=== PATIENT | male | born 1960 | race Caucasian/White ===

== ENCOUNTER 2016-10-23 11:22 | Observation (INO) | payer BC ==
[2016-10-23] MEDS ORDERED: Morphine INJ* 4 MG/ML 1 ML CARPUJECT IV ONE (11:55)
[2016-10-23] MEDS ORDERED: NS 0.9% 1000 ML* 2,000 ML IV ONE (11:55)
[2016-10-23] MEDS ORDERED: Ondansetron INJ* 2 MG/ML VIAL IV ONE (11:55)
[2016-10-23] MEDS ORDERED: Pantoprazole IV* 40 MG IV ONE (11:55)
[2016-10-23 12:37] LABS: Hematocrit 44 % (42-52); Hemoglobin 14.7 g/dl (14.0-18.0); Mean Corpuscular HGB Conc 33 g/dl (31-36); Mean Corpuscular Hemoglobin 29 pg (27-31); Mean Corpuscular Volume 88 fL (80-94); Mean Platelet Volume 9 um3 (7.4-10.4); Red Blood Count 5.07 10^6/ul (4.0-5.4); Red Cell Distribution Width 15 % (10.5-15); White Blood Count 10.5 10^3/ul (3.5-10.8)
[2016-10-23 12:53] LABS: Albumin 3.9 g/dL (3.2-5.2); BUN/Creatinine Ratio 12.8 (8-20); C Reactive Protein 8.65 mg/L (< 5.00); Calcium 9.2 mg/dL (8.6-10.3); EGFR African American 106.4 (>60); EGFR Non-African American 82.7 (>60); Globulin 3.6 g/dL (2-4); Magnesium 1.7 mg/dL (1.9-2.7); Potassium 3.8 mmol/L (3.5-5.0); Total Bilirubin 0.5 mg/dL (0.2-1.0); Total Protein 7.5 g/dL (6.4-8.9)
--- NOTE | 2016-10-23 13:12 | RAD ---
INDICATION: Upper abdominal pain. COMPARISON: Comparison is made with a prior chest x-ray study from December 05, 2014. TECHNIQUE: A portable view of the chest was obtained. FINDINGS: The patient is status post anatomy. The heart is within normal limits in size. The lungs are underinflated and grossly clear. No pleural or effusion or pneumothorax is seen. No free intraperitoneal air is seen. IMPRESSION: NO EVIDENCE FOR ACUTE FINDING.
[2016-10-23 13:31] LABS: TSH (Thyroid Stimulating Horm) 3.96 mcIU/mL (0.34-5.60)
--- NOTE | 2016-10-23 13:38 | RAD ---
HISTORY: Abdominal pain COMPARISONS: CT dated March 18, 2015 TECHNIQUE: Multiple transverse and longitudinal ultrasound images were obtained of the right upper quadrant of the abdomen using grayscale and color Doppler imaging. FINDINGS: The study is limited by patient bowel gas. LIVER: The liver is diffusely echogenic and coarse in echotexture, with decreased acoustic transmission. The liver measures 21 cm in long axis.. There is normal hepatopedal flow of the portal vein on Doppler imaging. BILIARY TREE: There is no intrahepatic or extrahepatic biliary dilatation. The common duct measures 0.4 cm. GALLBLADDER: The gallbladder is distended. Multiple shadowing echogenic foci consistent with gallstones are noted. There is no gallbladder wall thickening, pericholecystic fluid, or sonographic Valerio sign. PANCREAS: The pancreas is obscured by overlying bowel gas. RIGHT KIDNEY: The right kidney is normal in shape, size, contour, and echogenicity. There is no hydronephrosis or nephrolithiasis. The right kidney measures 11 x 4.7 x 3.7 cm. AORTA AND IVC: The aorta and IVC are unremarkable. FLUID: There are no pleural effusions. There is no free fluid within the hepatorenal recess. OTHER FINDINGS: None. IMPRESSION: HEPATOMEGALY WITH FATTY INFILTRATION OF THE LIVER. CHOLELITHIASIS
[2016-10-23] MEDS ORDERED: Iohexol 300* (CONTRAST) 10 ML SDV IV ONE (13:51)
--- NOTE | 2016-10-23 15:12 | RAD ---
INDICATION: Diffuse abdominal pain. History of Crohn's disease. Post appendectomy, colon resection. COMPARISON: RIGHT upper quadrant ultrasound of the same date and March 18, 2015 CT. TECHNIQUE: Multidetector CT images were obtained from the lung bases to the ischial tuberosities with 132 mL Omnipaque 300 IV and oral contrast. Multiplanar reformation. REPORT: Minimal dependent subsegmental atelectasis. Prosthetic aortic valve noted. Negative for cardiomegaly or pericardial effusion. Decreased density of the liver consistent with fatty infiltration. No focal hepatic lesions or biliary dilatation. Adequately distended gallbladder is remarkable for small dependent stones without additional sonographic abnormality. Unremarkable pancreas and spleen. Splenule at the splenic hilum. There is mucosal enhancement of the residual featureless: Post total colectomy with ileoanal anastomosis. There are segmental regions of mural thickening of the ileum most prominent at the supraumbilical anterior abdomen where it is severe with mild associated perienteric inflammatory change. Resulting low-grade partial small bowel obstruction or ileus with mild dilatation of proceeding loops of ileum measuring up to 2.8 cm diameter with air-fluid levels. Negative for pneumatosis. Negative for ascites, free air, hernias. Normal adrenal glands. 2 mm nonobstructing calyceal stone upper pole LEFT kidney. A few small renal cortical lesions are noted at the RIGHT kidney most consistent with benign cysts although too small to fully characterize. Unremarkable ureters and partially distended urinary bladder as well as the prostate and seminal vesicles. Negative for lymphadenopathy. Small talon hepatis lymph nodes measure up to 1 cm short axis, the upper limits of normal without change. Anterior abdominal mesenteric lymph nodes measuring up to 1.0 cm short axis diameter, the upper limits of normal without change. Normal diameter abdominal aorta and iliac arteries. Physiologic distention of the IVC. Unremarkable sacroiliac joints. No suspicious focal osseous lesions evident. IMPRESSION: 1. The constellation of findings is consistent with a Crohn's exacerbation involving the ileum as described. Resulting low-grade partial small bowel obstruction or ileus. 2. Talon hepatis and mesenteric lymph nodes measuring up to 1 cm short axis diameter at the upper limits of normal without change. 3. Hepatic steatosis. 4. Cholelithiasis. 5. Nonobstructing stone upper pole calyx LEFT kidney without change.
[2016-10-23] MEDS ORDERED: Morphine INJ* 4 MG/ML 1 ML CARPUJECT IV PRN (17:37)
[2016-10-23] MEDS ORDERED: Acetaminophen TAB* 325 MG PO PRN (17:37)
[2016-10-23] MEDS ORDERED: Ondansetron INJ* 2 MG/ML VIAL IV PRN (17:38)
[2016-10-23] MEDS ORDERED: Warfarin TAB(*) 7.5 MG PO SCH (18:00)
[2016-10-23] MEDS ORDERED: fentaNYL PATCH 25 MCG/HR TRANSDERM SCH ×2 (18:00→20:00)
[2016-10-23] MEDS ORDERED: Morphine INJ* 4 MG/ML 1 ML CARPUJECT ONE (18:26)
[2016-10-23] MEDS ORDERED: fentaNYL PATCH 12 MCG/HR TRANSDERM SCH ×2 (19:00→20:00)
[2016-10-23] MEDS: fentaNYL Patch Check Q Shift 1 NOTE SCH (21:01)
[2016-10-23] MEDS: sulfaSALAzine TAB* 500 MG PO SCH (21:23)
[2016-10-23] MEDS: Metoprolol Tartrate TAB* 25 MG PO SCH (21:24)
[2016-10-23] MEDS: Pantoprazole IV* 40 MG IV SCH (21:24)
--- NOTE | 2016-10-23 21:25 | ED ---
Von Mtz Kyle, scribed for Russell Polo MD on 10/23/16 at 1156 . Abdominal Pain/Male - HPI Summary HPI Summary: This is a 56 yo male presenting with complaints of intermittent upper abdominal pain that began around 1045 this morning. He reports that the pain comes in waves and lasts for about 30 seconds at a time. He does have a history of Crohn' s which he reports this is not similar to. He also notes that he took Clindamycin this morning before going to the dentist, which reports is the only thing has has done differently. He denies any chest pain, fevers, chills, vomiting, diarrhea. No bloody BM. He is currently on Coumadin. - History of Current Complaint Chief Complaint: EDChestPainROMI Stated Complaint: CHEST PAIN Time Seen by Provider: 10/23/16 11:49 Hx Obtained From: Patient Onset/Duration: Sudden Onset Timing: Intermittent Severity Initially: Moderate Severity Currently: Moderate Pain Intensity: 8 Pain Scale Used: 0-10 Numeric Location: Epigastric Radiates: No Character: Sharp Aggravating Factor(s): Nothing Alleviating Factor(s): Nothing - Allergies/Home Medications Allergies/Adverse Reactions: Allergies Allergy/AdvReac Type Severity Reaction Status Date / Time Infliximab [From Remicade] Allergy Severe Flushing, Verified 10/23/16 11:32 pain, hypertension Iron Dextran [From Infed] Allergy Severe RED FACE, Verified 10/23/16 11:32 BACK PAIN Mercaptopurine Allergy Severe HIGH TEMPS Verified 10/23/16 11:32 Methotrexate Allergy Severe Shakes Verified 10/23/16 11:32 Penicillins [PCN] Allergy Intermediate Rash Verified 10/23/16 11:32 NSAIDs Allergy Unknown Must not Verified 10/23/16 11:32 have them secondary to Crohn's Home Medications: Home Medications Adalimumab (NF) [Humira Pen (NF)] 40 mg SUBCUT Q14D 10/23/16 [History Confirmed 10/23/16] Magnesium Oxide TAB* [MagOx 400 TAB*] 400 mg PO DAILY 10/23/16 [History Confirmed 10/23/16] Warfarin Sodium 7.5 mg PO EVERY OTHER DAY 10/23/16 [History Confirmed 10/23/16] PMH/Surg Hx/FS Hx/Imm Hx Endocrine/Hematology History: Reports: Hx Anticoagulant Therapy, Hx Blood Transfusions, Hx Anemia Denies: Hx Diabetes, Hx Thyroid Disease Cardiovascular History: Reports: Hx Deep Vein Thrombosis - x2, Hx Hypertension, Hx Valvular Heart Disease - AORTIC STENOSIS, Other Cardiovascular Problems/ Disorders - VALVE STENOSIS, STARTED ON COUMADIN Denies: Hx Congestive Heart Failure Respiratory History: Denies: Hx Asthma, Hx Chronic Obstructive Pulmonary Disease (COPD), Other Respiratory Problems/Disorders GI History: Reports: Hx Crohn's Disease, Hx Gastroesophageal Reflux Disease, Hx Obstructive Bowel - bowel resection hx, Other GI Disorders - Ilicolonic resection 1990 Denies: Hx Ulcer History: Reports: Hx Kidney Stones Denies: Other Problems/Disorders Musculoskeletal History: Reports: Other Musculoskeletal History - joint pain/ problems Sensory History: Reports: Hx Contacts or Glasses Denies: Hx Hearing Aid Opthamlomology History: Reports: Hx Contacts or Glasses Neurological History: Denies: Other Neuro Impairments/Disorders - Surgical History Surgery Procedure, Year, and Place: appendectomy, colon resection. Aortic Valve replaced 09/2014 Hx Anesthesia Reactions: No Infectious Disease History: No Infectious Disease History: Reports: Hx Shingles Denies: Hx Hepatitis, Hx Human Immunodeficiency Virus (HIV), History Other Infectious Disease, Traveled Outside the [place] in Last 30 Days - Family History Known Family History: Positive: Other Family History: Father, COPD; Mother, Lymphoma - Social History Alcohol Use: Occasionally Alcohol Amount: 3-4 beers Hx Substance Use: No Substance Use Type: Reports: Marijuana Substance Use Comment - Amount & Last Used: weekly Hx Tobacco Use: No Smoking Status (MU): Never Smoked Tobacco Have You Smoked in the Last Year: No Review of Systems Negative: Fever, Chills Negative: Chest Pain Positive: Abdominal Pain, Nausea. Negative: Vomiting, Diarrhea, Other - blood BM Genitourinary: Negative Musculoskeletal: Negative Skin: Negative Neurological: Negative Psychological: Normal All Other Systems Reviewed And Are Negative: Yes Physical Exam - Summary Physical Exam Summary: General: well-appearing, no pain distress Skin: warm, color reflects adequate perfusion, dry Head: normal Eyes: EOMI, TARA ENT: normal Neck: supple, nontender Respiratory: CTA, breath sounds present Cardiovascular: RRR Abdomen: soft, tender in the epigastric region. Hypoactive bowel sounds. Bowel: present Musculoskeletal: normal, strength/ROM intact Neurological: normal, sensory/motor intact, A&O x3 Psychological: affect/mood appropriate Triage Information Reviewed: Yes Vital Signs On Initial Exam: Initial Vitals Temp Pulse Resp BP Pulse Ox 98.2 F 63 18 141/93 93 10/23/16 11:24 10/23/16 11:24 10/23/16 11:24 10/23/16 11:24 10/23/16 11:24 Vital Signs Reviewed: Yes - Jigar Coma Scale Coma Scale Total: 15 Diagnostics - Vital Signs Vital Signs Temp Pulse Resp BP Pulse Ox 10/23/16 11:40 98.2 F 60 46 159/83 97 10/23/16 11:39 159/83 10/23/16 11:24 98.2 F 63 18 141/93 93 - Laboratory Lab Results: Lab Results 10/23/16 10/23/16 10/23/16 Range/Units 12:14 12:14 12:14 WBC (3.5-10.8) 10^3/ul RBC (4.0-5.4) 10^6/ul Hgb (14.0-18.0) g/dl Hct (42-52) % MCV (80-94) fL MCH (27-31) pg MCHC (31-36) g/dl RDW (10.5-15) % Plt Count (150-450) 10^3/ul MPV (7.4-10.4) um3 Neut % (Auto) (38-83) % Lymph % (Auto) (25-47) % [place] % (Auto) (1-9) % Eos % (Auto) (0-6) % Baso % (Auto) (0-2) % Absolute Neuts (auto) (1.5-7.7) 10^3/ul Absolute Lymphs (auto) (1.0-4.8) 10^3/ul Absolute Monos (auto) (0-0.8) 10^3/ul Absolute Eos (auto) (0-0.6) 10^3/ul Absolute Basos (auto) (0-0.2) 10^3/ul Absolute Nucleated RBC 10^3/ul Nucleated RBC % INR (Anticoag Therapy) 1.67 H (0.89-1.11) APTT 36.8 H (26.0-36.3) seconds Sodium 135 (133-145) mmol/L Potassium 3.8 (3.5-5.0) mmol/L Chloride 106 (101-111) mmol/L Carbon Dioxide 21 L (22-32) mmol/L Anion Gap 8 (2-11) mmol/L BUN 12 (6-24) mg/dL Creatinine 0.94 (0.67-1.17) mg/dL Est GFR ( Amer) 106.4 (>60) Est GFR (Non-Af Amer) 82.7 (>60) BUN/Creatinine Ratio 12.8 (8-20) Glucose 95 (70-100) mg/dL Lactic Acid (0.5-2.0) mmol/L Calcium 9.2 (8.6-10.3) mg/dL Magnesium 1.7 L (1.9-2.7) mg/dL Total Bilirubin 0.50 (0.2-1.0) mg/dL AST 24 (13-39) U/L ALT 18 (7-52) U/L Alkaline Phosphatase 69 (34-104) U/L Total Creatine Kinase 90 (10-223) U/L CK-MB (CK-2) 4.0 (0.6-6.3) ng/mL Troponin I 0.00 (<0.04) ng/mL C-Reactive Protein 8.65 H (< 5.00) mg/L B-Natriuretic Peptide 128 H ( - 100) pg/mL Total Protein 7.5 (6.4-8.9) g/dL Albumin 3.9 (3.2-5.2) g/dL Globulin 3.6 (2-4) g/dL Albumin/Globulin Ratio 1.1 (1-3) TSH 3.96 (0.34-5.60) mcIU/mL 10/23/16 10/23/16 Range/Units 12:14 12:14 WBC 10.5 (3.5-10.8) 10^3/ul RBC 5.07 (4.0-5.4) 10^6/ul Hgb 14.7 (14.0-18.0) g/dl Hct 44 (42-52) % MCV 88 (80-94) fL MCH 29 (27-31) pg MCHC 33 (31-36) g/dl RDW 15 (10.5-15) % Plt Count 216 (150-450) 10^3/ul MPV 9 (7.4-10.4) um3 Neut % (Auto) 75.9 (38-83) % Lymph % (Auto) 14.3 L (25-47) % [place] % (Auto) 8.7 (1-9) % Eos % (Auto) 0.7 (0-6) % Baso % (Auto) 0.4 (0-2) % Absolute Neuts (auto) 8.0 H (1.5-7.7) 10^3/ul Absolute Lymphs (auto) 1.5 (1.0-4.8) 10^3/ul Absolute Monos (auto) 0.9 H (0-0.8) 10^3/ul Absolute Eos (auto) 0.1 (0-0.6) 10^3/ul Absolute Basos (auto) 0 (0-0.2) 10^3/ul Absolute Nucleated RBC 0.01 10^3/ul Nucleated RBC % 0.1 INR (Anticoag Therapy) (0.89-1.11) APTT (26.0-36.3) seconds Sodium (133-145) mmol/L Potassium (3.5-5.0) mmol/L Chloride (101-111) mmol/L Carbon Dioxide (22-32) mmol/L Anion Gap (2-11) mmol/L BUN (6-24) mg/dL Creatinine (0.67-1.17) mg/dL Est GFR ( Amer) (>60) Est GFR (Non-Af Amer) (>60) BUN/Creatinine Ratio (8-20) Glucose (70-100) mg/dL Lactic Acid 1.4 (0.5-2.0) mmol/L Calcium (8.6-10.3) mg/dL Magnesium (1.9-2.7) mg/dL Total Bilirubin (0.2-1.0) mg/dL AST (13-39) U/L ALT (7-52) U/L Alkaline Phosphatase (34-104) U/L Total Creatine Kinase (10-223) U/L CK-MB (CK-2) (0.6-6.3) ng/mL Troponin I (<0.04) ng/mL C-Reactive Protein (< 5.00) mg/L B-Natriuretic Peptide ( - 100) pg/mL Total Protein (6.4-8.9) g/dL Albumin (3.2-5.2) g/dL Globulin (2-4) g/dL Albumin/Globulin Ratio (1-3) TSH (0.34-5.60) mcIU/mL Result Diagrams: 10/23/16 12:14 10/23/16 12:14 Lab Statement: Any lab studies that have been ordered have been reviewed, and results considered in the medical decision making process. - Radiology CXR Xray Interpretation: No Acute Changes - No evidence of acute findings. Radiology Interpretation Completed By: Radiologist - CT ABD/Pelvis CT Interpretation: Positive (See Comments) - Impression: 1. The constellation of findings is consistent with a Crohn's exacerbation involving the ileum as described. Resulting low-grade partial small bowel obstruction or ileus. 2. Talon hepatis and mesenteric lymph nodes measuring up to 1 cm short axis diameter at the upper limits of normal without change. 3. Hepatic steatosis. 4. Cholelithiasis. 5. Non obstructing stone upper role calyx left kidney without change. CT Interpretation Completed By: ED Physician - Ultrasound No standard instances Ultrasound Interpretation: Positive (See Comments) - Gallbladder US: Hepatomegaly with fatty infiltration of the liver. Cholelithiasis. Ultrasound Interpretation Completed By: Radiologist Abdominal Pain Fem Course/Dx - Course Course Of Treatment: DISCUSSED RESULTS WITH PATIENT/. ADMIT HOSPITALIST. NO CRITICAL CARE TIME. - Diagnoses Provider Diagnoses: SBO (small bowel obstruction), Exacerbation of Crohn's disease Discharge - Discharge Plan Condition: Stable Disposition: ADMITTED TO [facility] documentation as recorded by the Von dupree Kyle accurately reflects the service I personally performed and the decisions made by me, Russell Polo MD.
--- NOTE | 2016-10-23 22:41 | HP ---
CC: Dr. Landry* [facility] MEDICINE HISTORY AND PHYSICAL: DATE OF ADMISSION: 10/23/16 PRIMARY CARE PHYSICIAN: Dr. Landry. ATTENDING PHYSICIAN: Ewa York DO * (dictation provided by Monica Santana NP ). CHIEF COMPLAINT: Epigastric pain. HISTORY OF PRESENT ILLNESS: Mr. Tipton is a 56-year-old male with a past medical history of Crohn's disease with a bowel resection in 1990 and plans for repair of a rectal fistula next Thursday with Dr. Salas in [place]. He also has a history of aortic valve replacement with a bovine valve in 2014 in [place]. He reports that there is a "heart valve mismatch" and that valve is considered possibly to be too small. He reports that he had been evaluated in [facility] with plans for placement, but he declined at that point. His symptoms related to that are shortness of breath. He also has myelodysplastic syndrome that is "mild" and he is followed by Dr. Méndez with routine labs. Mr. Tipton had a dental appointment today. He ate a small breakfast and then took clindamycin as directed for endocarditis prophylaxis with his mechanical aortic valve. He got in his car and was driving to the dentist when he developed epigastric discomfort. He stated that the pain was very quite severe. He felt short of breath and anxious. He went home where he met his and because of the severity of the symptoms, they ultimately presented to the emergency room for evaluation. He states he was feeling in his normal state of health yesterday. He has had no recent Crohn's flares. The patient has had normal soft stools recently. His last bowel movement was this morning. In the emergency room, his vital signs were unremarkable. He had labs, which were also unremarkable. His C-reactive protein is 8.65. The patient had a gallbladder ultrasound, which showed hepatomegaly with fatty infiltration of the liver and cholelithiasis only. He had a chest x-ray which showed no acute finding, but he had an abdomen and pelvis CT, which I am concerned for a Crohn' s exacerbation in the ileum with possible partial small-bowel obstruction. PAST MEDICAL HISTORY: 1. Crohn's disease. 2. Aortic valve replacement in 2014 with concern for a valve that is "too small." 3. Myelodysplastic syndrome, followed by Dr. Méndez. 4. Iron deficiency anemia. 5. Multiple episodes of shingles most recently to his left arm. PAST SURGICAL HISTORY: 1. Bowel resection in 1990. 2. History of kidney stones. 3. History of tonsillectomy. 4. History of appendectomy. MEDICATIONS: 1. Warfarin 5 mg alternating with 7.5 mg every other day. 2. Humira Pen 40 mg subcutaneously q.14 days. 3. Cyanocobalamin 1000 mcg subcutaneously Thursday. 4. Ferumoxytol 610 mg IV as directed. 5. Lansoprazole 30 mg p.o. daily. 6. Magnesium 400 mg p.o. daily. 7. Amlodipine 10 mg p.o. daily. 8. Metoprolol tartrate 12.5 mg p.o. b.i.d. 9. Potassium 20 mEq p.o. daily. 10. Fentanyl patch 37.5 mcg q.72 hours. 11. Sulfasalazine 2000 mg p.o. b.i.d. ALLERGIES: To INFLIXIMAB, IRON DEXTRAN, MERCAPTOPURINE, METHOTREXATE, PENICILLINS, and NSAIDS. FAMILY HISTORY: The patient reports his mother related to COPD and dad related to his lymphoma. SOCIAL HISTORY: The patient has never been a smoker. He drinks 4 to 5 alcoholic beverages per month. He denies any drug use. He lives with his , who is his healthcare proxy. REVIEW OF SYSTEMS: A 14-point review of systems was completed with Mr. Tipton and all those not mentioned above were negative. PHYSICAL EXAMINATION GENERAL: Mr. Tipton is sitting up in the bed. He is in no acute distress. VITAL SIGNS: Temperature 98.2, heart rate 59, respiratory rate 17, O2 saturation 93% on room air, blood pressure 139/86. LUNGS: Clear to auscultation bilaterally with no accessory muscle use and good aeration. HEART: S1, S2. No murmur, rub or gallop and regular. ABDOMEN: Soft and nontender with bowel sounds positive x4. EXTREMITIES: No cyanosis or edema. SKIN: Intact. NEUROLOGIC: He is alert. He is oriented x3. He moves all extremities equally. There is no facial asymmetry or focal weakness. Extraocular movements are intact. DIAGNOSTIC STUDIES/LAB DATA: Sodium 135, potassium 3.8, chloride 106, serum bicarbonate 21, BUN 12, creatinine 0.94, glucose 95. BNP 128, CRP 8.65. Troponin 0.00. WBC 10.5, hemoglobin 14.7, hematocrit 44, platelet count 216. INR 1.67. Again, the abdomen and pelvis CT is read as follows: "The constellation of findings is consistent with a Crohn's exacerbation involving the ileum as described resulting in low-grade partial small bowel obstruction or ileus portal , mi hepatis and mesenteric lymph nodes measuring up to 1 cm short axis diameter at the upper limits of normal without change, hepatic steatosis, cholelithiasis, nonobstructing stone, upper pole calyx left kidney without change. Chest x-ray and gallbladder ultrasound are as read above in the HPI. EKG shows sinus rhythm with no evidence of ischemia and a heart rate of 60. ASSESSMENT: Mr. Tipton is a 56-year-old male with past medical history of Crohn's disease and aortic valve replacement as well as myelodysplastic syndrome who presents today to the hospital with concern for epigastric pain and CT scan has been found to show concern for Crohn's exacerbation and a partial small bowel obstruction. Our plans are for observation in the hospital for the followin. Partial small bowel obstruction: The patient's symptoms are not entirely consistent with a partial small bowel obstruction. However, he does have epigastric discomfort. I question whether or not this might be related to his clindamycin that he took this morning, although he did tolerate that in the past. I also question whether this could just be related to heartburn. Regardless, he does have this abnormality on the CT scan concerning for partial small bowel obstruction and I think he warrants at least observation in the hospital overnight. Our plans are for him to be n.p.o. except for ice chips. He has been encouraged to be mobile on the unit. He will have pain medications p.r.n. It seems very unlikely this is actually related to his Crohn's as he has had no diarrhea and no lower abdominal pain. 2. History of aortic valve replacement: The patient will continue on his warfarin, but plan to increase the dose at 7.5 mg p.o. daily as his INR is subtherapeutic. 3. Iron deficiency anemia: The patient's hemoglobin is actually normal. 4. Hypertension: Hold amlodipine. Continue metoprolol. 5. Crohn's disease. Continue sulfasalazine and Humira that will be every 2 weeks. 6. DVT prophylaxis with SCDs and warfarin with subtherapeutic INR at this point. 7. Code status is full code. TIME SPENT: Approximately 60 minutes were spent on the admission of this patient, more than half of the time was spent with the patient at the bedside reviewing the events leading up to this hospitalization, performing the physical examination and reviewing the plan of care. MONICA SANTANA DEVELOPMENT PROFESSIONAL [id number]/CPS #: [id number] STACY
[2016-10-24] MEDS: NS 0.9% 1000 ML* 1,000 ML IV SCH (04:31)
[2016-10-24] MEDS: fentaNYL Patch Check Q Shift 1 NOTE SCH (07:23)
--- NOTE | 2016-10-24 07:39 | PN ---
Subjective Date of Service: 10/24/16 Interval History: Mr. Tipton states that he is feeling much better today. His epigastric pain has completely resolved. He has had three bowel movements since admission, which is his norm for a day. He denies other complaint including chest pain, SOB, or nausea. Objective Active Medications: Acetaminophen (Tylenol Tab*) 650 mg PO Q6H PRN Fentanyl (Duragesic Patch 12 Mcg/Hr *) 12 mcg TRANSDERM Q72HR@2000 [facility] Fentanyl (Duragesic Patch 25 Mcg/Hr*) 25 mcg TRANSDERM Q72HR@2000 [facility] Sodium Chloride (Ns 0.9% 1000 Ml*) 1,000 mls @ 100 mls/hr IV PER RATE [facility] Metoprolol Tartrate (Lopressor Tab*) 12.5 mg PO BID [facility] Morphine Sulfate (Morphine Inj (Syringe)*) 4 mg IV Q4H PRN Ondansetron HCl (Zofran Inj*) 4 mg IV Q6H PRN Pantoprazole Sodium (Protonix Iv*) 40 mg IV BID [facility] Pharmacy Profile Note (Fentanyl Patch Check Q Shift) 1 note N/A BID [facility] Potassium Chloride (Klor Con Er Tab*) 20 meq PO DAILY [facility] Sulfasalazine (Azulfidine Tab*) 2,000 mg PO BID [facility] Warfarin Sodium (Coumadin Tab(*)) 7.5 mg PO DAILY@1700 [facility] Vital Signs 10/23/16 10/23/16 10/23/16 15:00 16:00 16:27 Temperature 97.5 F Pulse Rate 60 58 52 Respiratory 18 17 18 Rate Blood Pressure 139/86 156/89 (mmHg) O2 Sat by Pulse 97 93 98 Oximetry 10/23/16 10/23/16 10/23/16 16:39 16:50 18:25 Temperature Pulse Rate Respiratory 17 17 16 Rate Blood Pressure (mmHg) O2 Sat by Pulse Oximetry 10/23/16 10/23/16 10/23/16 19:22 19:25 19:30 Temperature 98.9 F Pulse Rate 58 Respiratory 16 18 18 Rate Blood Pressure 158/99 (mmHg) O2 Sat by Pulse 95 Oximetry 10/23/16 10/23/16 10/24/16 20:00 23:26 03:18 Temperature 98.4 F 98.4 F Pulse Rate 58 58 Respiratory 18 16 16 Rate Blood Pressure 144/87 142/90 (mmHg) O2 Sat by Pulse 94 94 Oximetry Oxygen Devices in Use Now: None Appearance: Male standing up in his room in NAD Eyes: No Scleral Icterus Ears/Nose/Mouth/Throat: Mucous Membranes Moist Neck: Trachea Midline Respiratory: Symmetrical Chest Expansion and Respiratory Effort, Clear to Auscultation Cardiovascular: NL Sounds; No Murmurs; No JVD, No Edema Abdominal: NL Sounds; No Tenderness; No Distention Lymphatic: No Cervical Adenopathy Extremities: No Edema Skin: No Rash or Ulcers Neurological: Alert and Oriented x 3, NL Muscle Strength and Tone Nutrition: Taking PO's Result Diagrams: 10/23/16 12:14 10/23/16 12:14 Additional Lab and Data: Lab Results 10/23/16 10/23/16 10/23/16 Range/Units 12:14 12:14 12:14 WBC (3.5-10.8) 10^3/ul RBC (4.0-5.4) 10^6/ul Hgb (14.0-18.0) g/dl Hct (42-52) % MCV (80-94) fL MCH (27-31) pg MCHC (31-36) g/dl RDW (10.5-15) % Plt Count (150-450) 10^3/ul MPV (7.4-10.4) um3 Neut % (Auto) (38-83) % Lymph % (Auto) (25-47) % Boy[place] % (Auto) (1-9) % Eos % (Auto) (0-6) % Baso % (Auto) (0-2) % Absolute Neuts (auto) (1.5-7.7) 10^3/ul Absolute Lymphs (auto) (1.0-4.8) 10^3/ul Absolute Monos (auto) (0-0.8) 10^3/ul Absolute Eos (auto) (0-0.6) 10^3/ul Absolute Basos (auto) (0-0.2) 10^3/ul Absolute Nucleated RBC 10^3/ul Nucleated RBC % INR (Anticoag Therapy) 1.67 H (0.89-1.11) APTT 36.8 H (26.0-36.3) seconds Sodium 135 (133-145) mmol/L Potassium 3.8 (3.5-5.0) mmol/L Chloride 106 (101-111) mmol/L Carbon Dioxide 21 L (22-32) mmol/L Anion Gap 8 (2-11) mmol/L BUN 12 (6-24) mg/dL Creatinine 0.94 (0.67-1.17) mg/dL Est GFR ( Amer) 106.4 (>60) Est GFR (Non-Af Amer) 82.7 (>60) BUN/Creatinine Ratio 12.8 (8-20) Glucose 95 (70-100) mg/dL Lactic Acid (0.5-2.0) mmol/L Calcium 9.2 (8.6-10.3) mg/dL Magnesium 1.7 L (1.9-2.7) mg/dL Total Bilirubin 0.50 (0.2-1.0) mg/dL AST 24 (13-39) U/L ALT 18 (7-52) U/L Alkaline Phosphatase 69 (34-104) U/L Total Creatine Kinase 90 (10-223) U/L CK-MB (CK-2) 4.0 (0.6-6.3) ng/mL Troponin I 0.00 (<0.04) ng/mL C-Reactive Protein 8.65 H (< 5.00) mg/L B-Natriuretic Peptide 128 H ( - 100) pg/mL Total Protein 7.5 (6.4-8.9) g/dL Albumin 3.9 (3.2-5.2) g/dL Globulin 3.6 (2-4) g/dL Albumin/Globulin Ratio 1.1 (1-3) TSH 3.96 (0.34-5.60) mcIU/mL 10/23/16 10/23/16 Range/Units 12:14 12:14 WBC 10.5 (3.5-10.8) 10^3/ul RBC 5.07 (4.0-5.4) 10^6/ul Hgb 14.7 (14.0-18.0) g/dl Hct 44 (42-52) % MCV 88 (80-94) fL MCH 29 (27-31) pg MCHC 33 (31-36) g/dl RDW 15 (10.5-15) % Plt Count 216 (150-450) 10^3/ul MPV 9 (7.4-10.4) um3 Neut % (Auto) 75.9 (38-83) % Lymph % (Auto) 14.3 L (25-47) % Boyle % (Auto) 8.7 (1-9) % Eos % (Auto) 0.7 (0-6) % Baso % (Auto) 0.4 (0-2) % Absolute Neuts (auto) 8.0 H (1.5-7.7) 10^3/ul Absolute Lymphs (auto) 1.5 (1.0-4.8) 10^3/ul Absolute Monos (auto) 0.9 H (0-0.8) 10^3/ul Absolute Eos (auto) 0.1 (0-0.6) 10^3/ul Absolute Basos (auto) 0 (0-0.2) 10^3/ul Absolute Nucleated RBC 0.01 10^3/ul Nucleated RBC % 0.1 INR (Anticoag Therapy) (0.89-1.11) APTT (26.0-36.3) seconds Sodium (133-145) mmol/L Potassium (3.5-5.0) mmol/L Chloride (101-111) mmol/L Carbon Dioxide (22-32) mmol/L Anion Gap (2-11) mmol/L BUN (6-24) mg/dL Creatinine (0.67-1.17) mg/dL Est GFR ( Amer) (>60) Est GFR (Non-Af Amer) (>60) BUN/Creatinine Ratio (8-20) Glucose (70-100) mg/dL Lactic Acid 1.4 (0.5-2.0) mmol/L Calcium (8.6-10.3) mg/dL Magnesium (1.9-2.7) mg/dL Total Bilirubin (0.2-1.0) mg/dL AST (13-39) U/L ALT (7-52) U/L Alkaline Phosphatase (34-104) U/L Total Creatine Kinase (10-223) U/L CK-MB (CK-2) (0.6-6.3) ng/mL Troponin I (<0.04) ng/mL C-Reactive Protein (< 5.00) mg/L B-Natriuretic Peptide ( - 100) pg/mL Total Protein (6.4-8.9) g/dL Albumin (3.2-5.2) g/dL Globulin (2-4) g/dL Albumin/Globulin Ratio (1-3) TSH (0.34-5.60) mcIU/mL Assess/Plan/Problems-Billing Assessment: - Patient Problems (1) Partial small bowel obstruction Comment: - Patient with BMS overnight and no further pain. - Suspect epigastric pain not related to the CT abd findings of partial SBO. ? if related to taking clindamycin in the AM prior to a dental procedure. In any case, his symptoms have resolved. Plan to resume diet and ambulate on unit. If doing well, discharge to home with follow up with his providers in [place]. (2) Crohn disease Comment: - 3-4 bowel movements overnight. Per routine at home. - No evidence of exacerbation. (3) Full code status (4) DVT prophylaxis Comment: SCDs. Status and Disposition: OBV. Discharge to home.
[2016-10-24] MEDS: Pantoprazole IV* 40 MG IV SCH (08:52)
[2016-10-24] MEDS: sulfaSALAzine TAB* 500 MG PO SCH (08:53)
[2016-10-24] MEDS: Metoprolol Tartrate TAB* 25 MG PO SCH (08:53)
[2016-10-24] MEDS ORDERED: Potassium Chlor TAB* 20 MEQ TAB.ER PO SCH (09:00)
[2016-10-24 11:53] VITALS: BP 133/93
--- NOTE | 2016-10-25 02:35 | DS ---
CC: Dr. Landry * [facility] MEDICINE DISCHARGE SUMMARY: DATE OF ADMISSION: 10/23/16 DATE OF DISCHARGE: 10/24/16 PRIMARY CARE PHYSICIAN: Dr. Landry. ATTENDING PHYSICIAN: Dr. Derick Garcia * (dictation provided by Monica Santana NP). PRIMARY DIAGNOSES: 1. Epigastric pain. 2. Question of partial small bowel obstruction on CT abdomen and pelvis. SECONDARY DIAGNOSES: 1. History of Crohn's disease. 2. History of aortic valve replacement in 2014. 3. Myelodysplastic syndrome, followed by Dr. Méndez. 4. Iron deficiency anemia. 5. Multiple episodes of shingles. 6. Bowel resection in 1990. 7. History of kidney stones. 8. History of tonsillectomy. 9. History of appendectomy. MEDICATIONS AT THE TIME OF DISCHARGE: 1. Warfarin 7.5 mg p.o. daily (new dose based on INR 1.67 on 10/23/16). 2. Humira Pen 40 mg subcutaneously q.14 days. 3. Cyanocobalamin 1000 micrograms subcutaneously Mondays. 4. Ferumoxytol 610 mg IV as directed. 5. Lansoprazole 30 mg p.o. daily. 6. Magnesium 400 mg p.o. daily. 7. Amlodipine 10 mg p.o. daily. 8. Metoprolol tartrate 12.5 mg p.o. b.i.d. 9. Potassium 20 mEq p.o. daily. 10. Fentanyl patch 37.5 mcg q.72 hours. 11. Sulfasalazine 2000 mg p.o. b.i.d. HOSPITAL COURSE: is a 56-year-old male with a past medical history of Crohn's disease and mechanical aortic valve replacement, on warfarin therapy , who presented to the hospital on 10/23/16 with concern for epigastric pain. Please see the dictated H and P from myself for complete details. In brief, Mr. Tipton had had planned dental procedure on the morning of admission. For that reason, he had taken clindamycin. He had had clindamycin in the past on two separate occasions and tolerated it well. He ate a muffin and then was headed to the dentist office when he developed severe epigastric pain. He felt short of breath, anxious and sweaty. He ultimately went home and then contacted his and was brought to the emergency room. In the emergency room , he had a CT abdomen and pelvis, which showed concern for Crohn's flare with possible partial small bowel obstruction in the ileum. Mr. Tipton was observed in the hospital overnight. He was n.p.o. with IV fluids. He states that he has had 3 bowel movements through the evening. This is routine for him with his history of Crohn's disease. He had complete resolution of his epigastric pain and is eager for oral intake. He has had no other abdominal pain. He has been ambulating on the unit without difficulty. Mr. Tipton is dong well, is medically stable for discharge. I suspect that perhaps his epigastric pain was related to the clindamycin he took in the morning or perhaps it was related to an early partial small bowel obstruction and appears to be resolved. In either case, the patient is stable for discharge to home for followup with his providers in [place]. DISPOSITION: Home. DIET: Low salt. ACTIVITY: As tolerated. FOLLOWUP PLANS: Please follow up per routine with Dr. Landry and with the ER surgeons in [place] regarding planned surgery for rectal fistulas. TIME SPENT: Approximately 60 minutes were spent on the discharge of this patient, more than half the time spent with the patient at the bedside reviewing the events leading up to this hospitalization and during this hospitalization, performing the physical examination and reviewing the discharge plan. MONICA SANTANA NP [id number]/[facility] #: [id number] STACY
[2016-10-31] MEDS: NS 0.9% 1000 ML* 1,000 ML IV SCH (16:45)
== END 2016-10-24 16:00 | disposition home or self-care (01) ==
LOC: ED 11:22 → SSU 14:50
PROVIDERS: ADMIT Internal Medicine; ATTEND Internal Medicine
DX: R10.13 Epigastric pain (principal); K50.90 Crohn's disease, unspecified, without complications; Z95.2 Presence of prosthetic heart valve; D50.9 Iron deficiency anemia, unspecified; R06.02 Shortness of breath; Z87.442 Personal history of urinary calculi; Z79.01 Long term (current) use of anticoagulants; Z79.899 Other long term (current) drug therapy; Z88.8 Allergy status to other drugs, medicaments and biological substances; Z88.2 Allergy status to sulfonamides; D46.9 Myelodysplastic syndrome, unspecified
CPT/HCPCS: 36415; 71010; 74177; 76705; 80053; 82550; 82553; 83605; 83735; 83880; 84443; 84484; 85025; 85610; 85730; 86140; 93005; 96374; 96375; 96376; 99285; A9270-GY; G0378; J2270; J2405; Q9967

== ENCOUNTER 2018-08-23 17:23 | Inpatient (IN) | payer BC ==
[2018-08-23 18:33] LABS: ABS Basophils 0.1 10^3/ul (0-0.2); ABS Lymphocytes 1.9 10^3/ul (1.0-4.8); ABS Monocytes 1.1 10^3/ul (0-0.8); ABS Neutrophils 15.3 10^3/ul (1.5-7.7); ABS Nucleated RBC 0.1 10^3/ul; Eosinophil % 0.1 %; Hematocrit 49 % (42-52); Hemoglobin 16.6 g/dL (14.0-18.0); Lymphocyte % 10.4 %; Mean Corpuscular HGB Conc 34 g/dL (31-36); Mean Corpuscular Hemoglobin 29 pg (27-31); Mean Corpuscular Volume 85 fL (80-94); Mean Platelet Volume 8.7 fL (7.4-10.4); Nucleated Red Blood Cells % 0.5; Platelet Count 320 10^3/uL (150-450); Red Blood Count 5.71 10^6 /uL (4.18-5.48); Red Cell Distribution Width 14 % (10-15); White Blood Count 18.4 10^3/uL (3.5-10.8)
[2018-08-23 18:43] LABS: Albumin 4.7 g/dL (3.2-5.2); Albumin/Globulin Ratio 1.2 (1-3); BUN/Creatinine Ratio 15.7 (8-20); C Reactive Protein 11.81 mg/L (<8.01); Calcium 10.2 mg/dL (8.6-10.3); EGFR African American 78.8 (>60); EGFR Non-African American 65.1 (>60); Total Bilirubin 0.6 mg/dL (0.2-1.0); Total Protein 8.7 g/dL (6.4-8.9)
[2018-08-23] MEDS ORDERED: NS 0.9% 1000 ML** 1,000 ML IV ONE (19:23)
[2018-08-23] MEDS ORDERED: Morphine 4 MG/ML VIAL (1 ml) 4 MG/ML VIAL IV ONE ×2 (19:23→23:56)
[2018-08-23] MEDS ORDERED: Ondansetron INJ* 2 MG/ML VIAL IV ONE (19:23)
--- NOTE | 2018-08-23 19:33 | ED ---
Abdominal Pain/Male - HPI Summary HPI Summary: Patient is a 58 y/o M w/ PMHx of Crohn's disease who presents to ED with complaints of abdominal pain, N/V. Pain onset this morning, 08/23/18, at around 1100. He describes onset of pain as sudden and notes that the pain has been waxing and waning in intensity. Pain at its most severe is 10/10 and is typically around 5-6/10. At present, he rates the pain 7/10. Dr. Landry is patient's GI doctor. Patient makes note chronic diarrhea, but states that he has not had a bowel movement since onset of pain. He additionally claims that he is not passing gas. Nothing is noted to aggravate/alleviate Sx. Home medications and allergies are reviewed. - History of Current Complaint Chief Complaint: Joselinjessica Stated Complaint: THINK HE HAS A BOWEL OBSTRUCTION PER PT Time Seen by Provider: 08/23/18 19:13 Hx Obtained From: Patient Onset/Duration: Sudden Onset, Lasting Hours, Still Present Timing: Constant, Lasting Hours Severity Initially: Moderate Severity Currently: Severe Pain Intensity: 7 Pain Scale Used: 0-10 Numeric Aggravating Factor(s): Nothing Alleviating Factor(s): Nothing Associated Signs And Symptoms: Positive: Constipation, Nausea, Vomiting, Other - positive - not passing gas - Allergies/Home Medications Allergies/Adverse Reactions: Allergies Allergy/AdvReac Type Severity Reaction Status Date / Time infliximab [From Remicade] Allergy flushing, Verified 08/20/18 14:26 pain, hypertension iron dextran complex Allergy flushing Verified 08/20/18 14:26 [From Infed] skin, severe back pain mercaptopurine Allergy high fevers Verified 08/20/18 14:26 methotrexate Allergy tremors Verified 08/20/18 14:26 NSAIDS (Non-Steroidal Allergy Avoids due Verified 08/20/18 14:26 Anti-Inflamma to Crohn's disease Penicillins Allergy positive Verified 08/20/18 14:26 scratch test Home Medications: Home Medications Gabapentin 300 mg PO BID 08/23/18 [History Confirmed 08/23/18] PMH/Surg Hx/FS Hx/Imm Hx Endocrine/Hematology History: Reports: Hx Anticoagulant Therapy, Hx Blood Transfusions, Hx Anemia, Other Endocrine/Hematological Disorders - Myelodysplastic syndrome Denies: Hx Diabetes, Hx Thyroid Disease Cardiovascular History: Reports: Hx Deep Vein Thrombosis - x2, Hx Hypertension, Hx Valvular Heart Disease - aortic valve replacement x2, Other Cardiovascular Problems/Disorders - Hx aortic valve replacement x 2, myomectomy Denies: Hx Congestive Heart Failure Respiratory History: Denies: Hx Asthma, Hx Chronic Obstructive Pulmonary Disease (COPD), Other Respiratory Problems/Disorders GI History: Reports: Hx Crohn's Disease, Hx Gastroesophageal Reflux Disease, Hx Obstructive Bowel - bowel resection hx, Other GI Disorders - Ilicolonic resection 1990 Denies: Hx Ulcer History: Reports: Hx Kidney Stones Denies: Other Problems/Disorders Musculoskeletal History: Reports: Other Musculoskeletal History - joint pain/ problems Sensory History: Reports: Hx Contacts or Glasses Denies: Hx Hearing Aid Opthamlomology History: Reports: Hx Contacts or Glasses Neurological History: Denies: Other Neuro Impairments/Disorders - Cancer History Hx Hematologic Symptoms: Yes - Myelodysplastic syndrome - Surgical History Surgery Procedure, Year, and Place: appendectomy, colon resection, [facility]. Aortic Valve replaced 09/2014 [facility]. Aortic Valve replacement, myomectomy, aorta repair, mitral valve leaflet resection, 02/26 [facility]. Dual Chamber Pacemaker placement 02/26 [facility] Hx Anesthesia Reactions: No Infectious Disease History: No Infectious Disease History: Reports: Hx Shingles Denies: Hx Hepatitis, Hx Human Immunodeficiency Virus (HIV), History Other Infectious Disease, Traveled Outside the [place] in Last 30 Days - Family History Known Family History: Positive: Other Family History: Father, COPD; Mother, Lymphoma - Social History Alcohol Use: Weekly Alcohol Amount: 1-3 drinks per week Hx Substance Use: No Substance Use Type: Reports: Marijuana Substance Use Comment - Amount & Last Used: weekly Hx Tobacco Use: No Smoking Status (MU): Never Smoked Tobacco Have You Smoked in the Last Year: No Review of Systems Negative: Fever - on vitals, temp is 98.6 F Gastrointestinal: Other - positive - not passing gas, constipation Positive: Abdominal Pain, Vomiting, Nausea All Other Systems Reviewed And Are Negative: Yes Physical Exam - Summary Physical Exam Summary: VITAL SIGNS: Reviewed. GENERAL: Patient is a well-developed and nourished male who is lying comfortable in the stretcher. Patient is not in any acute respiratory distress. HEAD AND FACE: Normocephalic and atraumatic. EYES: PERRLA, EOMI x 2, No injected conjunctiva. EARS: Hearing grossly intact. Ear canals and tympanic membranes are WNL. MOUTH: Oropharynx within normal limits. NECK: Supple, trachea is midline, no adenopathy, no JVD. CHEST: Symmetric, no tenderness at palpation. LUNGS: Clear to auscultation bilaterally. No wheezing or crackles. CVS: RRR, S1 and S2 present, no murmurs or gallops appreciated. ABDOMEN: Soft, lower abdominal tenderness. No signs of distention. Positive bowel sounds. Guarding is noted. No rebound and no masses palpated. No abdominal bruit or pulsations. EXTREMITIES: FROM in all major joints, no edema, no cyanosis or clubbing. NEURO: Alert and oriented x 3. No acute neurological deficits. Speech is normal. SKIN: Dry and warm. Triage Information Reviewed: Yes Vital Signs On Initial Exam: Initial Vitals Temp Pulse Resp BP Pulse Ox 98.6 F 73 18 158/92 96 08/23/18 17:31 08/23/18 17:31 08/23/18 17:31 08/23/18 17:31 08/23/18 17:31 Vital Signs Reviewed: Yes Diagnostics - Vital Signs Vital Signs Temp Pulse Resp BP Pulse Ox 08/23/18 17:31 98.6 F 73 18 158/92 96 - Laboratory Lab Results: Lab Results 08/23/18 08/23/18 08/23/18 Range/Units 18:15 18:15 18:15 WBC 18.4 H (3.5-10.8) 10^3/uL RBC 5.71 H (4.18-5.48) 10^6 /uL Hgb 16.6 (14.0-18.0) g/dL Hct 49 (42-52) % MCV 85 (80-94) fL MCH 29 (27-31) pg MCHC 34 (31-36) g/dL RDW 14 (10-15) % Plt Count 320 (150-450) 10^3/uL MPV 8.7 (7.4-10.4) fL Neut % (Auto) 83.0 % Lymph % (Auto) 10.4 % [place] % (Auto) 6.0 % Eos % (Auto) 0.1 % Baso % (Auto) 0.5 % Absolute Neuts (auto) 15.3 H (1.5-7.7) 10^3/ul Absolute Lymphs (auto) 1.9 (1.0-4.8) 10^3/ul Absolute Monos (auto) 1.1 H (0-0.8) 10^3/ul Absolute Eos (auto) 0.0 (0-0.6) 10^3/ul Absolute Basos (auto) 0.1 (0-0.2) 10^3/ul Absolute Nucleated RBC 0.1 10^3/ul Nucleated RBC % 0.5 Sodium 139 (135-145) mmol/L Potassium 4.0 (3.5-5.0) mmol/L Chloride 104 (101-111) mmol/L Carbon Dioxide 23 (22-32) mmol/L Anion Gap 12 H (2-11) mmol/L BUN 18 (6-24) mg/dL Creatinine 1.15 (0.67-1.17) mg/dL Est GFR ( Amer) 78.8 (>60) Est GFR (Non-Af Amer) 65.1 (>60) BUN/Creatinine Ratio 15.7 (8-20) Glucose 115 H (70-100) mg/dL Lactic Acid 1.6 (0.5-2.0) mmol/L Calcium 10.2 (8.6-10.3) mg/dL Total Bilirubin 0.60 (0.2-1.0) mg/dL AST 24 (13-39) U/L ALT 40 (7-52) U/L Alkaline Phosphatase 131 H (34-104) U/L C-Reactive Protein 11.81 H (<8.01) mg/L Total Protein 8.7 (6.4-8.9) g/dL Albumin 4.7 (3.2-5.2) g/dL Globulin 4.0 (2-4) g/dL Albumin/Globulin Ratio 1.2 (1-3) Lipase 28 (11.0-82.0) U/L Result Diagrams: 08/23/18 18:15 08/23/18 18:15 Lab Statement: Any lab studies that have been ordered have been reviewed, and results considered in the medical decision making process. - Radiology abdominal x-ray Radiology Interpretation Completed By: ED Physician Summary of Radiographic Findings: Abdominal x-ray showed no air fluid levels, pending official report. Abdominal Pain Male Course/Dx - Course Assessment/Plan: Patient is a 58 y/o M presenting to ED with complaints of abdominal pain, N/V. Pain onset this morning, 1100, sudden onset, gradually increased. Waxes and wanes, typically 5-6/10. He reports Hx of Crohn's Disease. Dr. Landry is GI. He reports chronic diarrhea, but notes that he has not had . He claims that he is not passing gas. Blood work without any significant abnormality except for WBCs of 18.4, anion gap is 12, glucose 1:15, CRP of 11.8. X-ray of the abdomen shows no air-fluid levels. In the ED course the patient was given IV fluids, Zofran for nausea and morphine for pain. Patient is awaiting for CT. Therefore, the patient will be signed out to Dr. Carty at shift change. Patient is hemodynamically stable and alert and oriented 3. - Diagnoses Provider Diagnoses: Lower abdominal pain Discharge - Sign-Out/Discharge Documenting (check all that apply): Sign-Out Patient Signing out patient TO: Lashawn Carty - Discharge Plan Referrals: Javier Landry MD [Primary Care Provider] - - Attestation Statements Document Initiated by Scribe: Yes Documenting Scribe: NING FAUSTIN Provider For Whom Stiven is Documenting (Include Credential): RUDY BENITEZ MD Scribe Attestation: NING Mtz scribed for RUDY BENITEZ MD on 08/23/18 at 2155. Scribe Documentation Reviewed: Yes Provider Attestation: The documentation as recorded by the NING dupree accurately reflects the service I personally performed and the decisions made by me, RUDY BENITEZ MD Status of Scribe Document: Viewed
[2018-08-23] MEDS ORDERED: Iohexol 300* (CONTRAST) 10 ML SDV IV ONE (20:50)
--- NOTE | 2018-08-23 21:57 | ED ---
Progress - Progress Note Progress Note: This patient is a sign-out from Dr. Amado to Dr. Carty at shift change 2200 08/[address] Abd/Pel results. Course/Dx - Course Course Of Treatment: This patient is a sign-out from Dr. Amado to Dr. Carty at shift change 2200 08/23/[address] Abd/Pel results. CT Abd/Pel IMPRESSION: 1. Recurrence of inflammatory changes involving portions of the colon with. associated distention of the distal small bowel. The segments of colon shows. abnormal bowel wall thickening with thickening of the colonic wall with. mesenteric inflammatory changes. Patient has had a partial colectomy. 2. Chole[address]iasis. Dr. Carty consults the patient's case with Dr. Landry, gastrology. Dr. Landry says he wants to speak with Dr. Hoskins, hospitalist. At 2351, Dr. Carty consults patient's case with Dr. Hoskins. Dr. Hoskins later agrees to admit patient. Patient is agreeable. The final diagnosis is exacerbation of Crohn's disease and bowel obstruction. - Diagnoses Provider Diagnoses: Exacerbation of Crohn's disease, Bowel obstruction - Provider Notifications Discussed Care Of Patient With: Javier Landry Time Discussed With Above Provider: 23:42 Instructed by Provider To: Other - Dr. Carty consults the patient's case with Dr. Landry, gastrology. Dr. Landry says he wants to speak with Dr. Hoskins, hospitalist. At 2351, Dr. Carty consults patient's case with Dr. Hoskins. Dr. Hoskins later agrees to admit patient. Discharge - Sign-Out/Discharge Documenting (check all that apply): Receiving Sign-Out Receiving patient FROM: Jeb Amado - This patient is a sign-out from Dr. Amado to Dr. Carty at shift change 2200 08/23/[address] Abd/Pel results. Patient Received Moderate/Deep Sedation with Procedure: No - Discharge Plan Disposition: ADMITTED TO [facility] - Attestation Statements Document Initiated by Scribe: Yes Documenting Scribe: Claude Parra Provider For Whom Scribe is Documenting (Include Credential): Dr. Lashawn Carty MD Scribe Attestation: I, Claude Parra, scribed for Dr. Lashawn Carty MD on 08/24/18 at 0315. Status of Scribe Document: Ready
[2018-08-23 23:25] LABS: Urine Appearance Clear; Urine Bilirubin Negative (Negative); Urine Blood Negative (Negative); Urine Color Yellow; Urine Glucose Negative (Negative); Urine Ketones Negative (Negative); Urine Nitrite Negative (Negative); Urine Protein Negative (Negative); Urine Specific Gravity 1.029 (1.010-1.030); Urine Urobilinogen Negative (Negative)
[2018-08-23 23:46] LABS: Activated Partial Thrombo Time 32.2 seconds (26.0-38.0); INR 1.05 (0.82-1.09)
[2018-08-24] MEDS ORDERED: Ondansetron INJ* 2 MG/ML VIAL IV PRN (00:44)
[2018-08-24] MEDS ORDERED: fentaNYL PATCH 50 MCG/HR TRANSDERM SCH (01:00)
[2018-08-24] MEDS: Ciprofloxacin 400MG IVPREMIX(* 400 MG/200 ML BAG IVPB SCH ×2 (01:31→14:05)
[2018-08-24] MEDS: D5W 1/2 NS 1000 ML BAG* 1,000 ML IV SCH ×2 (02:27→12:50)
[2018-08-24] MEDS: metroNIDAZOLE IV 500 MG/100ML* 500 MG/100 ML BAG IVPB SCH ×3 (02:39→18:25)
--- NOTE | 2018-08-24 06:01 | HP ---
CC: Dr. Javier Landry * HISTORY AND PHYSICAL: DATE OF ADMISSION: 08/24/18 PRIMARY CARE PHYSICIAN: Javier Landry MD HEALTHCARE PROXY: Brenda, his . CODE STATUS: Full. CHIEF COMPLAINT: Epigastric pain associated with vomiting for several hours. HISTORY OF PRESENT ILLNESS: Mr. Tipton is a 58-year-old man with Crohn's disease, status post bowel resection in 1989, myelodysplastic syndrome, bovine aortic valve, hypertension, GERD, and remote history of DVTs, who is presenting from home with acute onset of upper abdominal pain that started on morning of presentation. He reports that as his pain worsened, it was associated with decreased appetite and he experienced vomiting several times. Initially, he vomited up Gatorade and lemonade, but eventually he states that emesis was bilious. He was able to have a normal bowel movement this morning, but denies recent bowel movement or passage of gas. His notes that he had visible chills this morning for 30 seconds, but no fever. Denies chest pain, shortness of breath, cough, dysuria. In the emergency room. CT was notable for recurrence of inflammatory changes involving portions of the colon with associated distention in the distal small bowel. The segments of colon shows abnormal bowel wall thickening with thickening of the colonic wall with mesenteric inflammatory changes also concerned for bowel obstruction of transverse colon. Dr. Landry of Gastroenterology team was consulted who recommended admission and also to consult surgery. REVIEW OF SYSTEMS: A complete 10-point review of systems was performed and pertinent positives and negatives as listed in the HPI. PAST MEDICAL HISTORY: 1. Crohn's disease, status post bowel resection in 1989 also complicated by joint pain, for which the patient is on a fentanyl patch. 2. Myelodysplastic syndrome. 3. Bicuspid aortic valve, status post replacement with bovine tissue with procedure complicated by heart block now status post PPM. 4. SNEHA status post myomectomy. 5. Hypertension. 6. GERD. 7. Postherpetic neuralgia. 8. Remote history of DVT x2, previously on Coumadin. 9. Multiple episodes of shingles. PAST SURGICAL HISTORY: 1. Bowel resection in 1989. 2. History of kidney stones. 3. Tonsillectomy. 4. Appendectomy. HOME MEDICATIONS: 1. Humira 40 mg subcutaneously every 14 days. 2. Ferumoxytol. 3. Sulfasalazine tab 2000 mg twice a day. 4. Fentanyl patch 50 mcg per hour. 5. Gabapentin 300 mg b.i.d. 6. Amlodipine 10 mg daily. 7. Metoprolol tartrate 12.5 mg twice a day. 8. Lansoprazole 30 mg daily. 9. Aspirin 81 mg daily. 10. Potassium chloride 20 mEq daily. 11. Magnesium oxide 400 mg daily. 12. Vitamin B12 injections monthly. ALLERGIES: Viewed, and notable for various reactions to PENICILLINS, NSAIDS, METHOTREXATE, MERCAPTOPURINE, IRON, DEXTRAN and REMICADE. FAMILY HISTORY: Mother was a chronic smoker and passed from COPD. Father had lymphoma. Brother with diverticulitis, requiring bowel resection. SOCIAL HISTORY: The patient lives with his and son. He is a never smoker and rarely consumes alcohol. He does report active marijuana use. 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 PHYSICAL EXAMINATION GENERAL: He is a well-appearing man in no acute distress, who is alert and interactive, answers all questions appropriately, pleasant. VITAL SIGNS: T-max 99.1, heart rate 70, blood pressure 135/92, respiratory rate 16, oxygen saturation 96% on room air. HEENT: With moist mucous membranes. NECK: Supple. No JVD. LUNGS: Clear to auscultation bilaterally. HEART: Regular rate and rhythm with soft systolic murmur. ABDOMEN: Soft, nondistended. Tenderness to palpation in the epigastrium without guarding or rebound. Hyperactive bowel sounds. EXTREMITIES: Warm, well perfused without evidence of edema. NEUROLOGIC: A and O x3. No focal neuro deficits. Speech fluent. SKIN: Warm and dry. DIAGNOSTIC STUDIES/LAB DATA: Labs were reviewed and significant for WBC 18. 4 with 82% neutrophils. BMP and coags unremarkable. Alk phos 131. CRP 11.8. UA normal. Abdomen and pelvis CT with dilated loops of distal small bowel. Status post partial colectomy, long segment of transverse colon showing abnormal thickening of the bowel wall with constriction of the lumen, which causes obstruction of the proximal colon. There is associated mesenteric inflammation adenopathy. No evidence of acute diverticulitis. ASSESSMENT AND PLAN: Mr. Tipton is a 58-year-old man with a history of Crohn 's disease, status post resection, history of bowel obstruction, myelodysplastic syndrome, bovine aortic valve replacement with PPM, hypertension and remote history of DVTs , who is presenting with acute onset of abdominal pain associated with nausea and vomiting. He was found to with concerning inflammatory changes of his bowel with possible transverse colon obstruction. 1. Bowel inflammation with possible obstruction of the transverse colon. Appreciate GI and Surgery input. We will place NG tube with intermittent suction. Given leukocytosis and inability to rule out abscess on CT, we will initiate the patient on ciprofloxacin and Flagyl per GI. We will get pain control as needed with IV morphine and Zofran as needed for nausea. We will initiate maintenance fluids with D5 half-normal saline. 2. Postherpetic neuralgia. Continue home gabapentin. 3. Hypertension. Continue amlodipine 10. 4. Gastroesophageal reflux disease. Continue home PPI daily. 5. DVT prophylaxis. We will initiate the patient on Lovenox subcu given high risk from IBD and history of DVTs. 6. FEN. The patient is to remain NPO. He is on maintenance fluids. 7. Code Status: Full code. TIME SPENT: Approximately 60 minutes was spent on admission of this patient, more than of half of which was spent at the bedside for interview and exam. [id number]/[facility] #: [id number] STACY
[2018-08-24] MEDS: fentaNYL Patch Check Q Shift 1 NOTE FOLLOW UP SCH ×2 (06:54→19:12)
[2018-08-24] MEDS ORDERED: Enoxaparin(*) 40 MG/0.4 ML SYR SUBCUT SCH (07:00)
[2018-08-24 07:10] LABS: Hematocrit 41 % (42-52); Mean Corpuscular HGB Conc 34 g/dL (31-36); Mean Corpuscular Hemoglobin 29 pg (27-31); Mean Corpuscular Volume 85 fL (80-94); Mean Platelet Volume 9.1 fL (7.4-10.4); Platelet Count 243 10^3/uL (150-450); Red Blood Count 4.82 10^6 /uL (4.18-5.48); Red Cell Distribution Width 14 % (10-15); White Blood Count 9.8 10^3/uL (3.5-10.8)
[2018-08-24 07:25] LABS: BUN/Creatinine Ratio 16.3 (8-20); Calcium 8.6 mg/dL (8.6-10.3); EGFR African American 110.1 (>60); Magnesium 1.9 mg/dL (1.9-2.7); Potassium 3.7 mmol/L (3.5-5.0)
[2018-08-24] MEDS: Gabapentin CAP(*) 300 MG PO SCH ×3 (09:00→20:43)
[2018-08-24] MEDS: Pantoprazole TAB * 40 MG TAB PO SCH (09:00)
[2018-08-24] MEDS: Metoprolol Tartrate TAB* 25 MG PO SCH ×2 (09:00→20:43)
[2018-08-24] MEDS: amLODIPine TAB* 5 MG PO SCH (09:00)
--- NOTE | 2018-08-24 09:20 | CONS ---
GASTROENTEROLOGY CONSULT: DATE OF CONSULT: CONSULTING PHYSICIANs: Dr. Emerald Hoskins, Dr. Brady Vazquez, and Dr. Lawrence Méndez. REASON FOR CONSULTATION: Nausea, vomiting and mid abdominal pain beginning 11 a.m. today and reduced bowel movements. The CT scan suggesting SBO above thickened transverse colon HISTORY: This 58-year-old man with Crohn's disease, onset age 11, status post right hemicolectomy in 1990 and on Azulfidine ever since and then biologics since around 2002, has for the last 4 years been on Humira 40 mg every 14 days. He has numerous other problems including bovine aortic valve prosthesis, mild myelodysplasia, history of DVT, Hx of renal stones, and severe iron deficiency anemia, but he has generally been stable. His baseline status recently is minimally symptomatic from a gut point of view eating a low fiber diet and he has been putting on some weight He will have 3, sometimes 4 stools a day with some anorectal disease sometimes passing blood. . In the recent weeks, he has generally been doing well. A couple of weeks ago, he had a few hours of vomiting that seemed to be associated with a barbecue. There was no fever. Symptoms just lasted 12 to 18 hours and then settled out. In the last few days, he has been just fine. Last night, he had steak, potatoes , and Rice- A-Landry (eats very few vegetables) and he was doing fine this morning , working on [employer] project when he suddenly developed mid epigastric pain around 11 a.m. and then some vomiting. Vomiting continued. He had had a normal bowel movement around 7 a.m., but none since then. He has not been overtly febrile. In the ER, he has not been short of breath but has complained of diffuse abdominal pressure. White count is elevated to 18.4, hemoglobin 16.6 which is definitely above his baseline, and platelets 320. BUN 18, creatinine 1.15 ( baseline between 0.9 and 1.05), albumin 4.7 which is above his usual in the high 3s to 4.1. PAST MEDICAL HISTORY: 1. Crohn's disease - diagnosed age 11 when he had an appendectomy and now status post right hemicolectomy around 1990. His manifestations have always favored loose stools and anemia. He did have some crampy abdominal pain and a 9 to 10 mm balloon dilation of stenotic area in the mid sigmoid in October 2013. CT scans in 2013 and 2016 have shown a stenotic thickened area of transverse colon, though his albumin has never particularly run low and his CBC has normalized on oral and then intravenous iron. He was on Remicade for 10 to 12 years and then seemed to have infusion reaction, so 4 to 5 years ago was switched to Humira and he has been stable on that. 2. Aortic stenosis - status post his second bovine aortic valve in March 2017 at the [facility]. At that time, warfarin was stopped. 3. History of DVTs - on warfarin in the past. 4. Myelodysplastic syndrome - followed by Dr. Méndez. 5. History of renal stone - Dr. Mariano has stented. 6. GERD - on lansoprazole. 7. Chronic pain - on gabapentin and Duragesic patch. 8. Appendectomy age 11 MEDICATIONS: Humira 40 mg q.14 days, lansoprazole 30 mg, aspirin 81 mg, magnesium oxide 400, potassium 20 mEq, amlodipine 5 mg 2 tablets daily, sulfasalazine 500 mg 4 tablets a day. ALLERGIES: METHOTREXATE, MERCAPTOPURINE, INFLIXIMAB, PENICILLINS. 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 REVIEW OF SYSTEMS: No history of CVA, TIA, seizures, syncope, TN, hepatitis, jaundice, gastric ulcers, or skin disease. PHYSICAL EXAM: He is a clarke-complected middle aged man, in no overt distress. HEENT exam shows no icterus. Mucous membranes are normal. He has no adenopathy. Breath sounds are intact and symmetric. Heart sounds are regular. The abdomen is rounded, decreased bowel sounds that are somewhat tinny. There is diffuse deep tenderness. It is strikingly lateralizing. DIAGNOSTIC STUDIES/LAB DATA: CT scan - some dilated very distal small bowel and goes down to a segment of very thickened transverse colon and there seems to be localized area of fluid in the wall of that segment of colon and then the long segment of colon (present on 2017 CT scan), this followed by some other segments of more normal looking colon down to a decompressed distal colon and so has some gas in it. There are no obvious abscess collections. IMPRESSION: This 58-year-old man with very longstanding Crohn disease presented with nausea and vomiting of abrupt onset and without any fevers suggesting a small bowel obstruction. Although there are some potential lead points on the CT scan, he has had these findings before on CT scan and the assignment of this picture to a single area is not easy radiographically. He has not been having much in the way of Crohn activity in recent months. He has been gaining weight. Nonetheless, thickening of the transverse colon is hard to ignore as regards being the source of this. Therefore, I favor moderate prednisone 20 mg 3 times a day and covering Cipro and Flagyl along with an NG tube. This presentation seems more severe than 2017. [id number]/[facility] #: [id number] [facility]
[2018-08-24] MEDS: Magnesium Oxide TAB* 400 MG PO SCH (12:31)
[2018-08-24] MEDS: methylPREDNISolone SOD 40 MG* 1 ML VIAL IV SCH ×2 (14:06→22:08)
--- NOTE | 2018-08-24 14:58 | CONS ---
CC: Dr. Javier Landry; [facility] * CONSULTATION REPORT: DATE OF CONSULT: 08/24/18 REFERRING PROVIDER: Dr. Klever Schmidt, hospitalist. REASON FOR CONSULT: Crohn disease with bowel obstruction. HISTORY OF PRESENT ILLNESS: Mr. Wes Tipton is a 58-year-old gentleman with a long history of Crohn disease who has undergone a right hemicolectomy in 1990 for refractory disease. He also has history of myelodysplastic syndrome and has undergone 2 aortic valve replacements in addition to having hypertension , history of gastroesophageal reflux disease, and remote history of deep vein thromboses. He presented yesterday with acute onset of upper abdominal pain and discomfort associated with some vomiting several times. He vomited up the Gatorade Lemonade that he had drank, but he eventually states that the emesis was bilious. He had normal bowel movement yesterday, but not passed more flatus or bowel movements over the course of the day into the evening, and when his pain persisted, he presented to the emergency room. He denies chest pain, shortness of breath, or fever. When seen in the emergency room, he is noted to be afebrile without evidence of tachycardia. He had abdominal distension with some mild discomfort. He was noted to have a white blood cell count of 18,000. Electrolytes, BUN, creatinine were all within limits. He had a lactic acid of 1.6. His C-reactive protein is mildly elevated. He underwent a CT scan of the abdomen and pelvis. I did review these images with a radiologist here today. This does show an area of distal small bowel distention which appears to be somewhat chronic and an area of anastomosis which appears to be the ileum to the proximal transverse colon. In the transverse colon, there was thickening with apparent stenosis over a long stretch up to the splenic flexure. Likewise, there was some thickening of the sigmoid colon. The remainder of the small bowel appeared to be unremarkable. There was no evidence of abscess, extraluminal air, or free fluid. He states that he has been told that there may be a stricture at his previous anastomosis, this has been worsening, and in retrospect over the past 3 to 4 weeks, he has been having some intermittent nausea and vomiting, but he attributed this to his food. PAST MEDICAL HISTORY: 1. Crohn disease, longstanding. 2. Myelodysplastic syndrome. 3. Hypertension. 4. Bicuspid aortic valve, status post replacement. 5. Postherpetic neuralgia. PAST SURGICAL HISTORY: 1. Open appendectomy in 1976. 2. Right hemicolectomy. 3. Tonsillectomy. MEDICATIONS: Include: 1. Humira. 2. Iron supplementation. 3. Sulfasalazine 2000 mg b.i.d. 4. Fentanyl patch. 5. Gabapentin. 6. Amlodipine. 7. Metoprolol. 8. Lansoprazole. 9. Aspirin. 10. Potassium. 11. Magnesium with vitamin B. ALLERGIES: PENICILLINS, NONSTEROIDALS, METHOTREXATE, MERCAPTOPURINE, IRON, DEXTRAN, and REMICADE. SOCIAL HISTORY: He lives with his and son. His is a nurse and is his healthcare proxy. He has never been a smoker. He rarely consumes alcohol. 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 REVIEW OF SYSTEMS: As per above. PHYSICAL EXAM: Temperature 97.9, pulse 64, blood pressure 153/88. In general, he is a well-developed, well-nourished male, appears to be in no apparent distress. He is awake, alert, and conversive. His lungs were clear to auscultation with normal respiratory effort. Heart was regular rate and rhythm without murmurs, rubs, or gallops. His abdomen is soft and nondistended. He has a well-healed midline incision without hernia. There is also a right lower quadrant transverse incision without hernia. He had diminished bowel sounds throughout. There was no tenderness noted. There was no abdominal distension. Bowel sounds were present, but they were hypoactive throughout. Psychiatric: He is awake, alert, and oriented x3. He has normal judgment and insight. IMPRESSION: Longstanding Crohn disease, being medically treated by Dr. Landry with biologics as well as sulfasalazine. He has had a right hemicolectomy for disease and has had longstanding chronic appearing thickening of the transverse colon with a possible stricturing of his ileocolic anastomosis. Overnight, he states he has had 2 small bowel movements, denies having any abdominal distension, and is now having no abdominal pain. He is not passing any flatus. PLAN: The patient has been admitted to the hospitalist service and a nasogastric tube has been inserted. This has drained minimally over the past 12 hours. I reviewed the findings with him and I discussed his care with Dr. Landry as well as Dr. Schmidt. I would recommend continuing his present care. He has been started on Cipro and Flagyl as well for treatment of his Crohn disease. Dr. Landry does not feel that steroids are indicated. Concern obviously is if it become a significant mechanical stricture at his ileocolic anastomosis or this may well be secondary to the stricturing in the transverse colon and ultimately it may require surgical intervention for adequate treatment as this just may not respond medically and he may have multiple future recurrences and problems. I discussed this with him and I think that if this requires a surgery that he should be transferred or referred to a higher level of care to Gastrointestinal Surgery with experience with Crohn disease. He also has significant cardiac issues as well as myelodysplastic syndrome which need to be taken into consideration. For now, I believe his nasogastric tube could be discontinued as it is draining minimally and he is feeling better. We will follow him closely with you, continue the IV fluids, and allow him to have ice chips and sips of water. [id number]/[facility] #: [id number] [facility]IT[facility]
--- NOTE | 2018-08-24 17:18 | PN ---
Subjective Date of Service: 08/24/18 Interval History: Abdominal pain largely improved Had 2 BMs but also 2 episodes of low volume emesis Objective Active Medications: Amlodipine Besylate (Norvasc Tab*) 10 mg PO DAILY [facility] Last Admin: 08/24/18 09:00 Dose: 10 mg Enoxaparin Sodium (Lovenox(*)) 40 mg SUBCUT 0600 [facility] Fentanyl (Duragesic Patch 50 Mcg/Hr*) 50 mcg TRANSDERM Q72H [facility] Last Admin: 08/24/18 02:36 Dose: 50 mcg Gabapentin (Neurontin Cap(*)) 300 mg PO BID [facility] Last Admin: 08/24/18 09:20 Dose: Not Given Dextrose/Sodium Chloride (D5w 1/2 Ns 1000 Ml Bag*) 1,000 mls @ 100 mls/hr IV PER RATE [facility] Last Admin: 08/24/18 02:27 Dose: 100 mls/hr Ciprofloxacin/Dextrose (Cipro 400 Mg Ivpremix(*)) 400 mg in 200 mls @ 200 mls/ hr IVPB Q12H [facility]; Protocol Last Admin: 08/24/18 14:05 Dose: 200 mls/hr Metronidazole/Sodium Chloride (Flagyl 500 Mg Ivpb*) 500 mg in 100 mls @ 100 mls /hr IVPB Q8H [facility] Last Admin: 08/24/18 10:07 Dose: 100 mls/hr Magnesium Oxide (Magox 400 Tab*) 400 mg PO DAILY@1100 [facility] Last Admin: 08/24/18 12:31 Dose: Not Given Methylprednisolone Sodium Succinate (Solu-Medrol 40 Mg) 20 mg IV Q8HR [facility] Last Admin: 08/24/18 14:06 Dose: 20 mg Metoprolol Tartrate (Lopressor Tab*) 12.5 mg PO BID [facility] Last Admin: 08/24/18 09:00 Dose: 12.5 mg Ondansetron HCl (Zofran Inj*) 4 mg IV Q6H PRN PRN Reason: NAUSEA Last Admin: 08/24/18 12:21 Dose: 4 mg Pantoprazole Sodium (Protonix Tab*) 40 mg PO DAILY [facility]; Protocol Last Admin: 08/24/18 09:00 Dose: 40 mg Pharmacy Profile Note (Fentanyl Patch Check Q Shift) 1 note FOLLOW UP 0700, 1900 [facility] Last Admin: 08/24/18 06:54 Dose: 1 note Vital Signs - 8 hr 08/24/18 08/24/18 11:56 15:28 Temperature 98.4 F 98.2 F Pulse Rate 62 67 Respiratory 16 18 Rate Blood Pressure 161/90 151/91 (mmHg) O2 Sat by Pulse 94 94 Oximetry Oxygen Devices in Use Now: None Appearance: NG in place, NAD, interactive Eyes: No Scleral Icterus, PERRLA Ears/Nose/Mouth/Throat: - - dry mm Neck: NL Appearance and Movements; NL JVP, Trachea Midline Respiratory: Symmetrical Chest Expansion and Respiratory Effort, Clear to Auscultation Cardiovascular: RRR Abdominal: NL Sounds; No Tenderness; No Distention, No Hepatosplenomegaly Extremities: No Edema Neurological: Alert and Oriented x 3 Result Diagrams: 08/24/18 05:18 08/24/18 05:18 Additional Lab and Data: Lab Results 08/23/18 08/23/18 08/23/18 Range/Units 18:15 18:15 18:15 WBC 18.4 H (3.5-10.8) 10^3/uL RBC 5.71 H (4.18-5.48) 10^6 /uL Hgb 16.6 (14.0-18.0) g/dL Hct 49 (42-52) % MCV 85 (80-94) fL MCH 29 (27-31) pg MCHC 34 (31-36) g/dL RDW 14 (10-15) % Plt Count 320 (150-450) 10^3/uL MPV 8.7 (7.4-10.4) fL Neut % (Auto) 83.0 % Lymph % (Auto) 10.4 % [place] % (Auto) 6.0 % Eos % (Auto) 0.1 % Baso % (Auto) 0.5 % Absolute Neuts (auto) 15.3 H (1.5-7.7) 10^3/ul Absolute Lymphs (auto) 1.9 (1.0-4.8) 10^3/ul Absolute Monos (auto) 1.1 H (0-0.8) 10^3/ul Absolute Eos (auto) 0.0 (0-0.6) 10^3/ul Absolute Basos (auto) 0.1 (0-0.2) 10^3/ul Absolute Nucleated RBC 0.1 10^3/ul Nucleated RBC % 0.5 Sodium 139 (135-145) mmol/L Potassium 4.0 (3.5-5.0) mmol/L Chloride 104 (101-111) mmol/L Carbon Dioxide 23 (22-32) mmol/L Anion Gap 12 H (2-11) mmol/L BUN 18 (6-24) mg/dL Creatinine 1.15 (0.67-1.17) mg/dL Est GFR ( Amer) 78.8 (>60) Est GFR (Non-Af Amer) 65.1 (>60) BUN/Creatinine Ratio 15.7 (8-20) Glucose 115 H (70-100) mg/dL Lactic Acid 1.6 (0.5-2.0) mmol/L Calcium 10.2 (8.6-10.3) mg/dL Total Bilirubin 0.60 (0.2-1.0) mg/dL AST 24 (13-39) U/L ALT 40 (7-52) U/L Alkaline Phosphatase 131 H (34-104) U/L C-Reactive Protein 11.81 H (<8.01) mg/L Total Protein 8.7 (6.4-8.9) g/dL Albumin 4.7 (3.2-5.2) g/dL Globulin 4.0 (2-4) g/dL Albumin/Globulin Ratio 1.2 (1-3) Lipase 28 (11.0-82.0) U/L Assess/Plan/Problems-Billing Assessment: 58 yo M h/o crohns s/p right hemicolectomy, AVR x 2 and myelodysplastic dz pw SBO associated with inflammatory changes in colon seen on CT A/P c/w crohn's flare - Patient Problems (1) Crohn disease Comment: appreciate GI and surgeical team assistance repeat 2 view plain film thsi evening to confirm improvement prior to removal of NG tube IV steroids TID cipro/flagyl (2) HTN (hypertension) Code(s): I10 - ESSENTIAL (PRIMARY) HYPERTENSION Comment: norvasc and metoprolol (3) DVT prophylaxis Comment: lovenox
[2018-08-25] MEDS: Ciprofloxacin 400MG IVPREMIX(* 400 MG/200 ML BAG IVPB SCH ×2 (01:40→14:10)
[2018-08-25] MEDS: metroNIDAZOLE IV 500 MG/100ML* 500 MG/100 ML BAG IVPB SCH ×2 (02:44→09:26)
[2018-08-25] MEDS: D5W 1/2 NS 1000 ML BAG* 1,000 ML IV SCH (04:52)
[2018-08-25] MEDS ORDERED: Enoxaparin(*) 40 MG/0.4 ML SYR SUBCUT SCH (06:00)
[2018-08-25] MEDS: methylPREDNISolone SOD 40 MG* 1 ML VIAL IV SCH ×2 (06:33→14:10)
[2018-08-25] MEDS: fentaNYL Patch Check Q Shift 1 NOTE FOLLOW UP SCH (07:17)
[2018-08-25] MEDS: Metoprolol Tartrate TAB* 25 MG PO SCH (09:21)
[2018-08-25] MEDS: Pantoprazole TAB * 40 MG TAB PO SCH (09:21)
[2018-08-25] MEDS: amLODIPine TAB* 5 MG PO SCH (09:21)
[2018-08-25] MEDS: Gabapentin CAP(*) 300 MG PO SCH (09:22)
--- NOTE | 2018-08-25 11:42 | PN ---
Progress Note - Progress Note Date of Service: 08/25/18 SOAP: Subjective: Feels much better today-passing flatus and having BM's Tolerating liquids No abdominal pain Objective: Temp Pulse Resp BP Pulse Ox 98.6 F 61 18 128/74 92 08/25/18 07:15 08/25/18 07:15 08/25/18 09:22 08/25/18 07:15 08/25/18 07:15 Intake & Output 08/23/18 08/24/18 08/25/18 08/26/18 06:59 06:59 06:59 06:59 Intake Total 1440 3347 Output Total 1525 320 Balance -85 3027 Weight 210 lb Intake: IV Fluids 1020 1967 d5 1/2ns 1967 IVPB 400 ABX - CIPROFLOXACIN 200 Flagyl 200 Oral 420 980 Output: NG Tube Drainage Amount 525 140 Urine 1000 0 Emesis 180 Other: Estimated Void Medium Medium Date of Last Bowel 08/25/18 Movement # Bowel Movements 0 1 Estimated Stool Amount Medium # Voids 1 1 PEX: Abd is soft and non-distended. NABS, no tenderness AXR reviewed-I think small segment of small bowel dilated is chronic in area proximal to anastomosis. Assessment: Crohn's disease-bowel obstruction possibly at site of previous anastomosis or area of transverse colon involved with disease Plan: Diet as tolerated OK for D/C today from surgical standpoint Steroids per GI
[2018-08-25 11:43] VITALS: BP 140/81
[2018-08-25] MEDS: Magnesium Oxide TAB* 400 MG PO SCH (12:32)
--- NOTE | 2018-08-25 22:04 | DS ---
CC: Dr. Landry * DISCHARGE SUMMARY: DATE OF ADMISSION: 08/23/18 DATE OF DISCHARGE: 08/25/18 PRIMARY CARE PROVIDER: Dr. Landry. DISPOSITION ON DISCHARGE: Home. CONDITION ON DISCHARGE: Improved. PRIMARY DIAGNOSIS: Large-bowel obstruction, secondary to Crohn's flares. SECONDARY DIAGNOSES: 1. Crohn's disease. 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 4. Myomectomy. 5. Hypertension. 6. Gastroesophageal reflux disease. MEDICATIONS ON DISCHARGE: Include: 1. Amlodipine 10 mg daily. 2. Gabapentin 300 mg twice daily. 3. Sulfasalazine 2000 mg twice daily. 4. Fentanyl 50 mcg patch. 5. Amlodipine 10 mg daily. 6. Potassium chloride 20 mEq daily. 7. Metoprolol tartrate 12.5 mg twice a day. 8. Magnesium oxide 400 mg daily. 9. Lansoprazole 30 mg daily. 10. 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 11. Vitamin B12 injection 1000 mcg monthly. 12. Aspirin 81 mg daily. 13. Humira 40 units every 2 weeks. 14. Prednisone 20 mg 3 times a day for 5 additional days. 15. Metronidazole 500 mg 3 times a day for 5 additional days. 16. Ciprofloxacin 500 mg twice daily for 5 additional days. DIAGNOSTIC STUDIES/LAB DATA: Pertinent data: CT abdomen and pelvis, impression : Recurrence of inflammatory changes involving portions of colon with associated distention in the distal small bowel. Segments of colon shows abnormal bowel wall thickening with thickening of the colon wall with mesenteric inflammatory changes. The patient has had a partial colectomy. HISTORY OF PRESENT ILLNESS AND HOSPITAL COURSE: This is a patient medical history including Crohn's disease, early onset abdominal pain, presented with nausea, vomiting. Abdominal CT evidence as indicated above with large-bowel obstruction, possible stricture associated inflammation with concordant dilatation of small bowel. NG tube placed with rapid improvement in his symptoms including development of flatus and bowel movements. His NG tube was removed the day prior to discharge on 08/24/18. His diet was advanced to clear liquids, tolerated well. He will be discharged on a low residue diet. He was advised to return to the hospital if he develops abdominal pain, nausea, vomiting, or absence of flatus and stools. The patient will follow up with Dr. Landry in a week for further evaluation of his Crohn's and possible referral should he need further intervention at the tertiary care center. There were no complications during the patient's hospital stay. At followup, please: 1. Evaluate for continued resolution of symptoms, extend antibiotics and/or steroids as necessary. 2. Referral at your discretion for definitive management of Crohn's and possible stricture of transverse colon. [id number]/[facility] #: [id number] MTDD
== END 2018-08-25 17:25 | disposition home or self-care (01) | DRG 245 ==
LOC: ED 17:23 → SSU 08-24 00:33
PROVIDERS: ADMIT Internal Medicine; ATTEND Internal Medicine
PROC: 0D9670Z Drainage of Stomach with Drainage Device, Via Natural or Artificial Opening (ICD-10-PCS; principal; 2018-08-24)
DX: K50.112 Crohn's disease of large intestine with intestinal obstruction (principal); B02.29 Other postherpetic nervous system involvement; D46.9 Myelodysplastic syndrome, unspecified; I10 Essential (primary) hypertension; Z96.0 Presence of urogenital implants; G89.29 Other chronic pain; K21.9 Gastro-esophageal reflux disease without esophagitis; Z82.5 Family history of asthma and other chronic lower respiratory diseases; Z88.8 Allergy status to other drugs, medicaments and biological substances; Z88.0 Allergy status to penicillin; Z86.718 Personal history of other venous thrombosis and embolism; Z95.2 Presence of prosthetic heart valve; Z88.6 Allergy status to analgesic agent; Z80.7 Family history of other malignant neoplasms of lymphoid, hematopoietic and related tissues; Z86.19 Personal history of other infectious and parasitic diseases; Z87.442 Personal history of urinary calculi; Z81.2 Family history of tobacco abuse and dependence; Z79.82 Long term (current) use of aspirin
CPT/HCPCS: 36415; 74018; 74019; 74177; 80048; 80053; 81003; 83605; 83690; 83735; 85025; 85027; 85610; 85730; 86140; 87040; 99283; A9270-GY; J0744; J1650; J2270; J2405; J2920; J3490; Q9967

== ENCOUNTER 2020-12-28 10:47 | Observation (INO) ==
[2020-12-28] MEDS ORDERED: Lactated Ringers 1000 ml BAG 1,000 ML IV ONE (12:15)
[2020-12-28] MEDS ORDERED: Ondansetron 4 mg VIAL 2 MG/ML 2 ml VIAL IV ONE (12:15)
[2020-12-28] MEDS ORDERED: Morphine 4 MG/ML VIAL (1 ml) IV ONE (12:16)
[2020-12-28 13:27] LABS: ABS Lymphocytes 1.2 10^3/ul (1.0-4.8); ABS Monocytes 1.3 10^3/ul (0-0.8); ABS Neutrophils 9.4 10^3/ul (1.5-7.7); Hematocrit 45 % (42-52); Hemoglobin 15.2 g/dL (14.0-18.0); Lymphocyte % 10.3 %; Mean Corpuscular HGB Conc 34 g/dL (31-36); Mean Corpuscular Hemoglobin 29 pg (27-31); Mean Corpuscular Volume 85 fL (80-94); Mean Platelet Volume 9.3 fL (7.4-10.4); Nucleated Red Blood Cells % 0.1; Platelet Count 217 10^3/uL (150-450); Red Blood Count 5.33 10^6 /uL (4.18-5.48); Red Cell Distribution Width 14 % (10-15)
[2020-12-28 13:48] LABS: Magnesium 1.9 mg/dL (1.9-2.7)
[2020-12-28 14:00] LABS: INR 1.14 (0.86-1.15)
[2020-12-28 15:19] LABS: Albumin 4.5 g/dL (3.2-5.2); Albumin/Globulin Ratio 1.4 (1-3); Calcium 9.6 mg/dL (8.6-10.3); Globulin 3.2 g/dL (2-4); Potassium 4.1 mmol/L (3.5-5.0); Total Bilirubin 0.9 mg/dL (0.2-1.0); Total Protein 7.7 g/dL (6.4-8.9)
[2020-12-28] MEDS ORDERED: cefTRIAXone 1 gm/50 mL NS BAG 1 GM/50 ML BAG IV ONE (16:03)
[2020-12-28 16:08] LABS: Urine Appearance Clear; Urine Bilirubin Negative (Negative); Urine Blood 2+ (Negative); Urine Color Yellow; Urine Glucose Negative (Negative); Urine Ketones Trace (Negative); Urine Nitrite Negative (Negative); Urine Protein 1+(30 mg/dL) (Negative); Urine Specific Gravity 1.023 (1.002-1.030); Urine Urobilinogen Negative (Negative)
[2020-12-28 16:15] LABS: Urine Bacteria Absent (Absent); Urine Red Blood Cell 1+(3-5/hpf) (Absent); Urine White Blood Cell Trace(0-5/hpf) (Absent)
[2020-12-28] MEDS: NS 0.9% 1000 ml BAG 1,000 ML IV SCH (16:25)
[2020-12-28 16:32] LABS: Rapid COVID-19 Molecular Undetected (Undetected)
[2020-12-28] MEDS ORDERED: Ondansetron 4 mg VIAL 2 MG/ML 2 ml VIAL IV PRN (18:19)
[2020-12-28] MEDS: Morphine 2 MG/ML SYRINGE IV PRN (20:30)
[2020-12-28] MEDS ORDERED: fentaNYL PATCH 50 MCG/HR 1 PATCH TRANSDERM SCH (21:00)
[2020-12-28 22:37] LABS: Rapid COVID-19 Molecular Undetected (Undetected)
[2020-12-29] MEDS: Heparin 5000 UNITS/ML 1 mL VIAL SUBCUT SCH ×3 (00:13→15:30)
[2020-12-29] MEDS: fentaNYL Patch Check Q Shift NOTE FOLLOW UP SCH ×2 (00:14→06:57)
[2020-12-29] MEDS: NS 0.9% 1000 ml BAG 1,000 ML IV SCH ×2 (00:29→08:57)
[2020-12-29 05:09] LABS: ABS Lymphocytes 1.5 10^3/ul (1.0-4.8); ABS Monocytes 1.2 10^3/ul (0-0.8); ABS Neutrophils 7.1 10^3/ul (1.5-7.7); Eosinophil % 0.3 %; Hematocrit 41 % (42-52); Lymphocyte % 14.9 %; Mean Corpuscular HGB Conc 34 g/dL (31-36); Mean Corpuscular Hemoglobin 29 pg (27-31); Mean Corpuscular Volume 84 fL (80-94); Mean Platelet Volume 9.7 fL (7.4-10.4); Platelet Count 182 10^3/uL (150-450); Red Blood Count 4.87 10^6 /uL (4.18-5.48); Red Cell Distribution Width 14 % (10-15); White Blood Count 9.8 10^3/uL (3.5-10.8)
[2020-12-29 05:40] LABS: Calcium 8.9 mg/dL (8.6-10.3); Potassium 3.9 mmol/L (3.5-5.0)
[2020-12-29] MEDS: Morphine 2 MG/ML SYRINGE IV PRN (07:51)
[2020-12-29] MEDS ORDERED: tadalafiL 5 MG TABLET (NF) PO SCH (09:00)
[2020-12-29] MEDS ORDERED: cefTRIAXone 1 gm/50 mL NS BAG 1 GM/50 ML BAG ONE (11:00)
[2020-12-29] MEDS ORDERED: fentaNYL 100 mcg/2 ml 50 MCG/ML VIAL ONE ×2 (11:06→11:54)
[2020-12-29] MEDS ORDERED: Midazolam 2 mg/2 ml VIAL 1 mg/ml 2 ml VIAL (2 mg) ONE (11:06)
[2020-12-29] MEDS ORDERED: Rocuronium 50 mg VIAL 10 mg/ml 5 ml VIAL (50 mg) ONE (11:08)
[2020-12-29] MEDS ORDERED: Propofol 10 MG/ML 20 ML BTL ONE (11:08)
[2020-12-29] MEDS ORDERED: Iohexol 180 (CONTRAST) 20 ML SDV IV ONE (11:12)
[2020-12-29] MEDS ORDERED: Naloxone 0.4 mg VIAL 0.4 mg/ml 1 ml VIAL IV PRN (11:19)
[2020-12-29] MEDS ORDERED: fentaNYL 100 mcg/2 ml 50 MCG/ML VIAL IV PRN (11:19)
[2020-12-29] MEDS ORDERED: Ondansetron 4 mg VIAL 2 MG/ML 2 ml VIAL IV PRN (11:19)
[2020-12-29] MEDS ORDERED: HYDROmorphone 1 MG/1 ML SYRINGE IV PRN (11:19)
[2020-12-29] MEDS ORDERED: Phenylephrine 40 mcg/mL 10mL (400mcg) SYRINGE ONE ×2 (11:46→11:57)
[2020-12-29] MEDS ORDERED: Ondansetron 4 mg VIAL 2 MG/ML 2 ml VIAL ONE (12:09)
[2020-12-29 15:36] VITALS: BP 166/75
[2020-12-29] MEDS ORDERED: NS 0.9% 1000 ml BAG 1,000 ML IV SCH (15:45)
== END 2020-12-29 16:30 | disposition home or self-care (01) ==
LOC: EDHOLD 10:47 → ED 10:47 → SUATTDRO 18:26 → SSU 20:42
PROVIDERS: ADMIT Internal Medicine; ATTEND Internal Medicine

== ENCOUNTER 2023-08-25 05:55 | Inpatient (IN) ==
[~2023-08-25 05:55] MED LIST: Metoclopramide 5 MG/ML VIAL (10 mg) IV PRN; NS 0.45% 1000 ml BAG 1,000 ML IV SCH; Naloxone 0.4 mg VIAL 0.4 mg/ml 1 ml VIAL IV PRN; Ondansetron 4 mg VIAL 2 MG/ML 2 ml VIAL IV PRN; fentaNYL 100 mcg/2 ml 50 MCG/ML VIAL IV PRN
[2023-08-25] MEDS ORDERED: Scopolamine 1 mg/72hr PATCH ONE (06:18)
[2023-08-25] MEDS ORDERED: ceFAZolin 2 GM PREMIX 2 GM/50 ML BAG ONE (06:19)
[2023-08-25] MEDS ORDERED: Tranexamic Acid 1 GM/100ML BAG 2,000 MG/200 ML BAG IV ONE (06:19)
[2023-08-25 06:33] LABS: Rapid COVID-19 Molecular Undetected (Undetected)
[2023-08-25] MEDS: Scopolamine 1 mg/72hr PATCH TRANSDERM ONE (06:42)
[2023-08-25] MEDS ORDERED: ROPIVACAINE 5 MG/ML 30 ML BTL (0.5%) ONE ×2 (07:00→07:04)
[2023-08-25] MEDS ORDERED: Midazolam 2 mg/2 ml VIAL 1 mg/ml 2 ml VIAL (2 mg) ONE (07:00)
[2023-08-25] MEDS ORDERED: Lidocaine 2% PF 5 ML VIAL ONE (07:11)
[2023-08-25] MEDS ORDERED: Phenylephrine IV 10 MG/ML 1 ml VIAL ONE (07:11)
[2023-08-25] MEDS ORDERED: Dexamethasone IV 4 MG/ML VIAL 1 ml VIAL ONE (08:23)
[2023-08-25] MEDS ORDERED: Ondansetron 4 mg VIAL 2 MG/ML 2 ml VIAL ONE (08:23)
[2023-08-25] MEDS ORDERED: Propofol 10 MG/ML 20 ML BTL ONE ×2 (09:08→09:38)
[2023-08-25] MEDS ORDERED: Ondansetron ODT 4 mg TAB 4 MG TAB PO PRN (10:30)
[2023-08-25] MEDS ORDERED: Calcium Carb (TUMS) 500 mg CHEW TAB PO PRN (10:30)
[2023-08-25] MEDS ORDERED: Ondansetron 4 mg VIAL 2 MG/ML 2 ml VIAL IV PRN (10:30)
[2023-08-25] MEDS ORDERED: Lactulose 30 ml UDC PO PRN (10:30)
[2023-08-25] MEDS ORDERED: Magnesium Hydroxide LIQ 30 ML UDC PO PRN (10:30)
[2023-08-25] MEDS: Acetaminophen IV 1 GM/100ML 1,000 MG/100 ML BAG IV ONE (12:22)
[2023-08-25] MEDS: Buffered Lidocaine 1% SYRIN 1 ml INTRADERM ONE (12:22)
[2023-08-25] MEDS: Lactated Ringers 1000 ml BAG 1,000 ML IV SCH ×2 (12:23→12:29)
[2023-08-25] MEDS: Morphine 2 MG/ML SYRINGE IV PRN (13:24)
[2023-08-25] MEDS: fentaNYL PATCH 50 MCG/HR 1 PATCH TRANSDERM SCH (15:04)
[2023-08-25] MEDS: ceFAZolin 2 GM PREMIX 2 GM/50 ML BAG IV SCH (16:22)
[2023-08-25] MEDS: fentaNYL Patch Check Q Shift NOTE FOLLOW UP SCH (19:04)
[2023-08-25] MEDS: Magnesium Hydroxide LIQ 30 ML UDC PO SCH (22:31)
[2023-08-25] MEDS: POTASSIUM CITRATE 10 MEQ PO SCH (22:31)
[2023-08-26 07:19] LABS: Hematocrit 36.2 % (38-53); Hemoglobin 12.2 g/dL (13.2-16.3); Mean Platelet Volume 9.5 fL (7.5-11.2); Platelet Count 157 10^3/uL (150-450)
[2023-08-26 08:19] LABS: Anion Gap 9 mmol/L (2-16); Blood Urea Nitrogen 20 mg/dL (6-24); CO2 Carbon Dioxide 22 mmol/L (22-32); Calcium 8.2 mg/dL (8.6-10.3); Chloride 104 mmol/L (101-111); Creatinine, Serum 1.11 mg/dL (0.67-1.17); Glucose 110 mg/dL (70-100); Sodium 135 mmol/L (135-145); eGFR CKD-EPI 74.2 (>60)
[2023-08-26 08:26] LABS: Potassium, Whole Blood 4.5 mmol/L (3.4-4.5)
[2023-08-26] MEDS: Vitamin THERAPEUTIC TAB PO SCH (08:36)
[2023-08-26 11:56] LABS: Urine Appearance Clear; Urine Bilirubin Negative (Negative); Urine Blood 2+ (Negative); Urine Color Light-Yellow; Urine Glucose Negative (Negative); Urine Ketones Negative (Negative); Urine Nitrite Negative (Negative); Urine Protein Negative (Negative); Urine Specific Gravity 1.008 (1.002-1.030); Urine Urobilinogen Negative (Negative)
[2023-08-26 11:57] LABS: Urine Bacteria Absent /HPF (Absent); Urine Red Blood Cell 3+(>10/hpf) /HPF (0-Trace); Urine White Blood Cell Trace(0-5/hpf) /HPF (0-Trace)
[2023-08-26] MEDS: POTASSIUM CITRATE 10 MEQ PO SCH (13:48)
[2023-08-26 14:07] VITALS: BP 153/75
== END 2023-08-26 18:15 | disposition home or self-care (01) | DRG 470 ==
LOC: OR 05:55 → SSU 12:19
PROVIDERS: ADMIT Orthopaedic Surgery Adult Reconstructive Orthopaedic Surgery; ATTEND Orthopaedic Surgery Adult Reconstructive Orthopaedic Surgery